=== PATIENT | female | born 1995 | race Asian ===

== ENCOUNTER 2019-06-22 14:01 | Emergency (ER) | payer BC ==
[~2019-06-22] VITALS: Ht 162.6 cm; Wt 47.6 kg
[2019-06-22 14:01] VITALS: Ht 162.6 cm; Wt 47.6 kg
[2019-06-22 15:04] LABS: BASOPHIL % 0.5 % (0-2); PLATELET COUNT 368 x10^3mcL (130-400); RED CELL DISTRIBUTION WIDTH 14.8 % (11.5-14.5)
[2019-06-22 15:21] LABS: CALCIUM 7.9 mg/dL (8.5-10.1); CARBON DIOXIDE 32.8 mmol/L (21-32); CHLORIDE SERUM 104 mmol/L (98-107); CREATININE SERUM 0.7 mg/dL (0.6-1.0); GFR1 > 60 mL/min; GLUCOSE SERUM 109 mg/dL (74-106); POTASSIUM SERUM 4.3 mmol/L (3.5-5.1); SODIUM SERUM 141 mmol/L (136-145)
[2019-06-22 15:26] LABS: ALKALINE PHOSPHATASE 111 U/L (46-116); BILIRUBIN TOTAL 0.3 mg/dL (0.20-1.00); LIPASE 306 IU/L (73-393); TOTAL PROTEIN, SERUM 7.6 g/dL (6.4-8.2)
[2019-06-22 15:36] LABS: ALBUMIN 3.2 g/dL (3.4-5.0)
[2019-06-22 15:43] LABS: ALT/SGPT 33 U/L (14-59); AST/SGOT 43 U/L (15-37)
[2019-06-22 16:07] LABS: microscopic required? NO
[2019-06-22 16:11] LABS: urine erythrocyte NEGATIVE (NEGATIVE)
[2019-06-22 18:25] VITALS: BP 123/69
== END 2019-06-22 18:25 | disposition home or self-care (01) ==
LOC: ED 14:01
PROVIDERS: Emergency Medicine
DX: E86.0 Dehydration (principal); I95.9 Hypotension, unspecified; W18.09XA Striking against other object with subsequent fall, initial encounter; Y93.89 Activity, other specified; Y92.89 Other specified places as the place of occurrence of the external cause; Y99.8 Other external cause status
CPT/HCPCS: 36415; J7030